=== PATIENT | female | born 1965 | race African-American/Black ===

== ENCOUNTER 2017-04-12 21:11 | Emergency (ER) | payer OTHER ==
[~2017-04-12] VITALS: Ht 167.6 cm; Wt 85.7 kg
[~2017-04-12 21:11] MED LIST: BENA10TA2 PO; LAMO100T2 PO
[2017-04-12 23:25] VITALS: BP 155/78
--- NOTE | 2017-04-12 23:39 | NUR ---
LITO GOODMAN AT BEDSIDE FOR EVAL.
[2017-04-12] MEDS ORDERED: predniSONE 20 MG TABLET ONE (23:48)
[2017-04-12] MEDS ORDERED: FAMOTIDINE (20 MG) 20 MG TABLET ONE (23:48)
[2017-04-13] MEDS ORDERED: predniSONE 20 MG TABLET PO ONE
[2017-04-13] MEDS ORDERED: FAMOTIDINE (20 MG) 20 MG TABLET PO ONE
== END 2017-04-13 00:17 | disposition home or self-care (01) ==
LOC: ER 21:27
DX: T78.40XA Allergy, unspecified, initial encounter (principal); R21 Rash and other nonspecific skin eruption; I10 Essential (primary) hypertension; F17.200 Nicotine dependence, unspecified, uncomplicated; Z88.5 Allergy status to narcotic agent
CPT/HCPCS: 99283; A4606; J7512; Z7610

== ENCOUNTER 2018-11-05 18:03 | Emergency (ER) | payer OTHER ==
[~2018-11-05] VITALS: Ht 162.6 cm; Wt 92.5 kg
[~2018-11-05 18:03] MED LIST changes: -BENA10TA2 PO; +BENA10TA9 PO
[2018-11-05 18:33] VITALS: BP 148/91
== END 2018-11-05 19:03 | disposition home or self-care (01) ==
LOC: ER 18:05
DX: H92.02 Otalgia, left ear (principal); G40.909 Epilepsy, unspecified, not intractable, without status epilepticus; I10 Essential (primary) hypertension; F17.200 Nicotine dependence, unspecified, uncomplicated; Z88.5 Allergy status to narcotic agent
CPT/HCPCS: 99283; A4606

== ENCOUNTER 2020-02-02 01:20 | Inpatient (IN) | payer OTHER ==
[~2020-02-02] VITALS: Ht 162.6 cm; Wt 88.5 kg
[~2020-02-02 01:20] MED LIST changes: +BENA10TA74 PO; -BENA10TA9 PO
--- NOTE | 2020-02-02 01:30 | NUR ---
PT CAME TO THE ED C/O INTERMITTENT BILATERAL LOWER EXT EDEMA X4 DAYS. -REDNESS -TRAUMA - PAIN. PT AAOX4, RESPIRATIONS EVEN ADN UNLABORED ON RA W/ AND NOTED. PT CONNECTED TO THE MONITOR AND POX
--- NOTE | 2020-02-02 01:37 | NUR ---
PT ambualted to the restroom. Awaiting Pt to provide urine sample
--- NOTE | 2020-02-02 01:46 | NUR ---
URINE COLLECTED AND SENT TO LAB
--- NOTE | 2020-02-02 01:46 | NUR ---
BLOOD COLLECTED AND SENT TO LAB
[2020-02-02 01:49] LABS: BASOPHILS # (AUTO) 0.1 /CMM (0.0-0.2); EOSINOPHILS % (AUTO) 5.3 % (0.0-6.0); HEMATOCRIT 37 % (33-45); HEMOGLOBIN 12.4 g/dL (11.5-14.8); LYMPHOCYTES # (AUTO) 3.2 /CMM (0.8-4.8); LYMPHOCYTES % (AUTO) 41.1 % (20.0-44.0); MEAN CORPUSCULAR HGB CONC 33 g/dl (31.0-36.0); MEAN CORPUSCULAR VOLUME 96 fL (82-100); MONOCYTES # (AUTO) 0.3 /CMM (0.1-1.30); NEUTROPHILS # (AUTO) 3.8 /CMM (1.8-8.9); NEUTROPHILS % (AUTO) 48.6 % (43.0-81.0); PLATELET COUNT (AUTO) 407 /CMM (150-450); RED BLOOD CELL COUNT(AUTO) 3.89 MIL/uL (4.0-5.2); WHITE BLOOD COUNT (AUTO) 7.8 K/uL (4.3-11.0)
[2020-02-02 01:55] LABS: APPEARANCE,URINE Slightly Cloudy (CLEAR); BILIRUBIN,URINE SMALL (NEGATIVE); BLOOD, URINE Large Ery/uL (NEGATIVE); COLOR,URINE Yellow (YELLOW); KETONES,URINE Negative (NEGATIVE); LEUKOCYTE ESTERASE ,URINE Negative (NEGATIVE); NITRITE, URINE Negative (NEGATIVE); PROTEIN,URINE >=300 mg/dl (NEGATIVE); UGLUCOSE Negative (NEGATIVE); UROBILINOGEN,URINE 0.2 EU/dL (0.2)
[2020-02-02 01:59] LABS: CALCIUM, SERUM 8.3 mg/dL (8.5-10.1); CREATININE 1.5 mg/dL (0.6-1.3); POTASSIUM 3.8 mmol/L (3.5-5.1)
[2020-02-02 02:05] LABS: ALBUMIN 1.5 g/dL (3.4-5.0); BILIRUBIN,TOTAL 0.1 mg/dL (0.2-1.0); TOTAL PROTEIN, SERUM 6.6 g/dL (6.4-8.2)
[2020-02-02 02:19] LABS: WBC,URINE 0-2 /HPF (0-3)
[2020-02-02 02:20] LABS: BACTERIA,URINE Few /HPF (None Seen); MUCUS,URINE Few /LPF (None Seen); SQUAMOUS EPITHELIAL CELL,UR Moderate /HPF (None Seen)
[2020-02-02] MEDS ORDERED: ASPIRIN 325 MG TABLET ONE (02:27)
--- NOTE | 2020-02-02 02:29 | NUR ---
Artemio salazar in [facility] - 02/02/20 at 0326 by ERICK PAULA (DAUGHTER) CONTACT INFORMATION: [phone]
[2020-02-02] MEDS ORDERED: ASPIRIN 325 MG TABLET PO ONE (02:30)
[2020-02-02] MEDS ORDERED: TOPI200T PO (02:33)
[2020-02-02] MEDS ORDERED: LAMO200T2 PO (02:33)
[2020-02-02] MEDS ORDERED: BENA20TA9 PO (02:34)
--- NOTE | 2020-02-02 03:42 | NUR ---
PAGED EPIC AGAIN!
--- NOTE | 2020-02-02 04:25 | NUR ---
REPORT GIVEN TO MIKE CRUZ
[2020-02-02] MEDS ORDERED: MAG HYDROX/AL HYDROX/SIMETH 30 ML UDC PO PRN (04:30)
[2020-02-02] MEDS ORDERED: MAGNESIUM HYDROXIDE 30 ML UDC PO PRN (04:30)
[2020-02-02] MEDS ORDERED: ONDANSETRON HCL/PF 4 MG/2 ML VIAL IVP PRN (04:30)
[2020-02-02] MEDS ORDERED: Z GUARD REMEDY 2 OZ OINT TP PRN (04:30)
[2020-02-02] MEDS ORDERED: ACETAMINOPHEN 325 MG TABLET PO PRN (04:30)
[2020-02-02] MEDS ORDERED: HYDROCODONE/APAP 5/325MG 1 EACH TABLET PO PRN (04:30)
[2020-02-02 04:50] VITALS: BP 137/78
--- NOTE | 2020-02-02 04:50 | NUR ---
telegraph mechanictax attorney note received patient via gurney. patient ambulated to bed with steady gait. a/ox4. tolerating room air. respirations are even and unlabored. no s/s sob noted. no c/o pain at this time. external tele monitor reads sinus rhythm hr 75. in no apparent distress. iv access in rac#20 patent and saline locked. initial physical assessment completed at this time. skin assessment completed at this time. skin intact. compressor operator adjuster obtained vital signs and completed belongings list. ciggs and liter taken and placed in drawer at nurses station. bed is low and locked, hob elevated in semi fowlers, side rails up x2, call light within reach. will continue to monitor.
--- NOTE | 2020-02-02 05:47 | NUR ---
PT TRANSFERRED TO ROOM IN STABLE CONDITION VIA ACLS PROTOCOL
--- NOTE | 2020-02-02 06:52 | NUR ---
teletypewriter operator closing note patient in bed. a/ox4. tolerating room air. respirations are even and unlabored. no s/s sob noted. no c/o pain. external tele monitor reads sinus rhythm. no distress. iv access maintained in rac#20 patent and saline locked. bed remains low and locked, hob elevated in semi fowlers, side rails up x2, call light within reach. will endorse to next shift
--- NOTE | 2020-02-02 07:53 | NUR ---
RN Initial Notes Patient is pleasant A/O x 4. Patient has no pain and with no signs of distress. IV RAC is intact with no signs of redness no swelling and no pain. Bed is in low setting with side rails up and call light within reach. Has a morning appetite. Continue to monitor.
[2020-02-02 08:00] VITALS: BP 155/93
[2020-02-02] MEDS: LamoTRIgine 100 MG TABLET PO SCH (08:56)
[2020-02-02] MEDS ORDERED: ENOXAPARIN SODIUM 30 MG/0.3 ML DISP.SYRIN SQ SCH (09:00)
[2020-02-02] MEDS ORDERED: FUROSEMIDE 40 MG/4 ML VIAL IV SCH (09:00)
[2020-02-02] MEDS: ASPIRIN 325 MG TABLET PO SCH (09:01)
[2020-02-02] MEDS: TOPIRAMATE 100 MG TABLET PO SCH ×2 (09:02→16:26)
[2020-02-02] MEDS: BENAZEPRIL HCL 10 MG TABLET PO SCH (09:04)
[2020-02-02] MEDS: METOPROLOL TARTRATE 50 MG TABLET PO SCH ×2 (09:05→21:03)
[2020-02-02] MEDS: ATORVASTATIN 10 MG TABLET PO SCH (09:05)
[2020-02-02] MEDS: ENOXAPARIN SODIUM 40 MG/0.4 ML DISP.SYRIN SQ SCH (09:06)
[2020-02-02] MEDS ORDERED: METOPROLOL TARTRATE INJ 5 MG/5 ML AMPUL IVP PRN (09:30)
[2020-02-02] MEDS ORDERED: NITROGLYCERIN 0.4 MG/TAB BOTTLE SL ONE (09:30)
--- NOTE | 2020-02-02 09:50 | NUR ---
PEDIATRIC DENTAL HYGIENIST NOTES PT SEEN BY DR. ANTONIO, PLAN OF CARE DISCUSSED WITH PT, VERBALIZED UNDERSTANDING, CLARIFIED LOVENOX DOSE WITH MD, MD ORDERED LOVENOX 40MG, NOTED AND CARRIED OUT, PT FOR CT ANGIO OF THE HEART, CONSENTS SIGNED.
[2020-02-02] MEDS ORDERED: IOHEXOL-350 100 ML VIAL IV ONE (09:56)
[2020-02-02] MEDS ORDERED: IV NS 0.9% 250 ML IV ONE (09:56)
[2020-02-02] MEDS ORDERED: NITROGLYCERIN 0.4 MG/TAB BOTTLE ONE ×2 (10:10→11:01)
[2020-02-02] MEDS ORDERED: METOPROLOL TARTRATE INJ 5 MG/5 ML AMPUL ONE ×2 (10:10→11:02)
--- NOTE | 2020-02-02 11:28 | NUR ---
from the floor for CTA heart via wheelchair, denies CP sob, Metoprolol 5 mg IVP given x1 and NTG 0.04 mg SL given ; tolerated procedure, VSS; tolerated procedure; denies CP or SOB, back to floor via wheelchair; report given to Lynne MCKEON
[2020-02-02 12:00] VITALS: BP 139/81
--- NOTE | 2020-02-02 12:57 | NUR ---
ANILINE PRESS WORKER Notes Patient is A/O x 4 scheduled medications were given. No signs of distress and no SOB. ECHO was performed. Vitals are within normal range. Bed is in low setting and side rails up for safety. Call light is within reach. Continue to monitor.
[2020-02-02 16:00] VITALS: BP 130/72
--- NOTE | 2020-02-02 18:00 | NUR ---
BRIDGE ENGINEER Closing Notes Patient is A/O x 4. In room air with no SOB and no signs of distress. Vitals are WNL and no pain. Scheduled medication were given. IV RAC is patent. Bed is in low settings with said rails up for safety hob is semi fowlers. Call light is within reach. Will endorse to next shift.
--- NOTE | 2020-02-02 19:30 | NUR ---
telemarketing representative opening note received patient in bed. a/ox4. tolerating room air. respirations are even and unlabored. no s/s sob noted. no c/o pain at this time. external tele monitor reads sinus rhythm hr 66. in no apparent distress. iv access in rac#20 patent and saline locked. bed is low and locked, hob elevated in semi fowlers, side rails up x2, call light within reach. will continue to monitor.
[2020-02-02 20:00] VITALS: BP 131/76
[2020-02-03] VITALS: BP 123/71
[2020-02-03 04:00] VITALS: BP 115/71
[2020-02-03 06:23] LABS: BASOPHILS % (AUTO) 0.7 % (0.0-2.0); EOSINOPHILS % (AUTO) 6.2 % (0.0-6.0); HEMATOCRIT 31 % (33-45); HEMOGLOBIN 10.3 g/dL (11.5-14.8); LYMPHOCYTES % (AUTO) 48.8 % (20.0-44.0); MEAN CORPUSCULAR HGB CONC 33 g/dl (31.0-36.0); MEAN CORPUSCULAR VOLUME 96 fL (82-100); MONOCYTES # (AUTO) 0.4 /CMM (0.1-1.30); MONOCYTES % (AUTO) 5.8 % (2.0-12.0); NEUTROPHILS # (AUTO) 2.3 /CMM (1.8-8.9); NEUTROPHILS % (AUTO) 38.5 % (43.0-81.0); PLATELET COUNT (AUTO) 323 /CMM (150-450); RED BLOOD CELL COUNT(AUTO) 3.25 MIL/uL (4.0-5.2); WHITE BLOOD COUNT (AUTO) 6.1 K/uL (4.3-11.0)
--- NOTE | 2020-02-03 06:38 | NUR ---
supervisor telephone clerks closing note patient in bed. a/ox4. remains tolerating room air. respirations are even and unlabored. no sob noted.no pain. external tele monitor reads sinus rhythm. no distress. iv access maintained in rac#20 patent and saline locked. bed remains low and locked, hob elevated in semi fowlers, side rails up x2, call light within reach. will endorse to next shift
[2020-02-03 06:46] LABS: CALCIUM, SERUM 7.6 mg/dL (8.5-10.1); CREATININE 1.3 mg/dL (0.6-1.3); MAGNESIUM 1.7 mg/dL (1.8-2.4); PHOSPHORUS 5.2 mg/dL (2.5-4.9); POTASSIUM 3.9 mmol/L (3.5-5.1)
--- NOTE | 2020-02-03 07:33 | NUR ---
viscose department worker Opening Notes Patient is A/0 x 4 remain in bed with no signs of shortness of breath and no distress in room air. No c/o of pain. IV RAC #20 gauge in patent saline locked. Bed is in low settings and side rails up for safety. Call light is within reach. Continue to monitor.
[2020-02-03 08:00] VITALS: BP 154/84
[2020-02-03] MEDS: ENOXAPARIN SODIUM 40 MG/0.4 ML DISP.SYRIN SQ SCH (08:43)
[2020-02-03] MEDS: TOPIRAMATE 100 MG TABLET PO SCH (08:44)
[2020-02-03] MEDS: LamoTRIgine 100 MG TABLET PO SCH (08:44)
[2020-02-03] MEDS: ASPIRIN 325 MG TABLET PO SCH (08:44)
[2020-02-03] MEDS: BENAZEPRIL HCL 10 MG TABLET PO SCH (08:45)
[2020-02-03] MEDS: METOPROLOL TARTRATE 50 MG TABLET PO SCH (08:45)
[2020-02-03] MEDS: ATORVASTATIN 10 MG TABLET PO SCH (08:45)
[2020-02-03 12:00] VITALS: BP 143/83
[2020-02-03] MEDS: Magnesium 1GM/D5W 100ML PREMIX 100 ML IV SCH ×2 (12:03→13:07)
--- NOTE | 2020-02-03 12:24 | NUR ---
ICER AIR CONDITIONING Notes Patient is A/O x 4 remains in bed with no signs of distress and no shortness of breath. Scheduled medications were given and tolerated food meals good.
--- NOTE | 2020-02-03 16:04 | NUR ---
aba therapist Notes Patient in bed awake alert and oriented able to ambulate to the bathroom in steady gait no complain of pain. Respirations are normal. Patient seen by Dr. Hinton discharge order given. Discharge medications and discharge instructions given to patients verbalize understanding. Patient to follow up with Dr. Kennedy. Belongings accounted for new prescription given to patient assisted patient o hospital lobby via wheelchair picked up by daughter. Left via private car in stable condition.
[2020-02-04 08:11] LABS: *SPE A/G RATIO 0.5 (0.7-1.7); *SPE ALBUMIN 1.7 g/dL (2.9-4.4); *SPE ALPHA-1-GLOBULIN 0.2 g/dL (0.0-0.4); *SPE ALPHA-2-GLOBULIN 1.1 g/dL (0.4-1.0); *SPE BETA GLOBULIN 0.4 g/dL (0.7-1.3); *SPE GLOBULIN, TOTAL 3.2 g/dL (2.2-3.9); *SPEGAMMA GLOBULIN 1.5 g/dL (0.4-1.8)
== END 2020-02-03 16:39 | disposition home or self-care (01) | DRG 280 ==
LOC: ER 01:22 → TELE 04:14 → MED 02-03 11:29
PROVIDERS: ADMIT Legal Medicine; ATTEND Legal Medicine
DX: I21.4 Non-ST elevation (NSTEMI) myocardial infarction (principal); I50.33 Acute on chronic diastolic (congestive) heart failure; N17.0 Acute kidney failure with tubular necrosis; I13.0 Hypertensive heart and chronic kidney disease with heart failure and stage 1 through stage 4 chronic kidney disease, or unspecified chronic kidney disease; G40.909 Epilepsy, unspecified, not intractable, without status epilepticus; N18.3 Chronic kidney disease, stage 3 (moderate); E78.5 Hyperlipidemia, unspecified; I25.10 Atherosclerotic heart disease of native coronary artery without angina pectoris; J44.9 Chronic obstructive pulmonary disease, unspecified; F17.200 Nicotine dependence, unspecified, uncomplicated
CPT/HCPCS: 36415; 71045-TC; 75574; 80048-TC; 80061-TC; 80076-TC; 81000-TC; 83735-TC; 83880; 84100-TC; 84155; 84165; 84484-TC; 85025-TC; 87081-TC; 93307-TC; G0378; J1650; J3475; J3490; J7050; Q9967

== ENCOUNTER 2020-02-13 17:39 | Inpatient (IN) | payer OTHER ==
[~2020-02-13] VITALS: Ht 162.6 cm; Wt 86.2 kg
[~2020-02-13 17:39] MED LIST changes: +BENA20TA9 PO; +LAMO200T2 PO; +TOPI200T PO
--- NOTE | 2020-02-13 18:05 | NUR ---
PATIENT CAME IN TO THE ER C/O WEAKNESS SINCE SHE WAS DISCHARGED ABOUT 5 DAYS AGO,ALSO C/O CHEST DISCOMFORT,"LIKE SOMEONE IS SITTING ON MY CHEST". ON ROOM AIR, BREATHING EVENLY AND UNLABORED. CONNECTED TO THE MONITOR AND PULSE OX. KEPT COMFORTABLE, WILL CONTINUE TO MONITOR ACCORDINGLY.
[2020-02-13] MEDS ORDERED: ASPIRIN 81 MG TAB.CHEW ONE (18:27)
[2020-02-13] MEDS ORDERED: ASPIRIN 81 MG TAB.CHEW PO ONE (18:30)
[2020-02-13 18:41] LABS: BASOPHILS # (AUTO) 0.1 /CMM (0.0-0.2); BASOPHILS % (AUTO) 1.9 % (0.0-2.0); EOSINOPHILS % (AUTO) 5.9 % (0.0-6.0); HEMATOCRIT 38 % (33-45); HEMOGLOBIN 12.3 g/dL (11.5-14.8); LYMPHOCYTES # (AUTO) 2.8 /CMM (0.8-4.8); LYMPHOCYTES % (AUTO) 39.6 % (20.0-44.0); MEAN CORPUSCULAR HGB CONC 33 g/dl (31.0-36.0); MEAN CORPUSCULAR VOLUME 98 fL (82-100); MONOCYTES # (AUTO) 0.3 /CMM (0.1-1.30); MONOCYTES % (AUTO) 4.4 % (2.0-12.0); NEUTROPHILS # (AUTO) 3.4 /CMM (1.8-8.9); NEUTROPHILS % (AUTO) 48.2 % (43.0-81.0); PLATELET COUNT (AUTO) 395 /CMM (150-450); RED BLOOD CELL COUNT(AUTO) 3.86 MIL/uL (4.0-5.2); WHITE BLOOD COUNT (AUTO) 7.1 K/uL (4.3-11.0)
[2020-02-13 19:03] LABS: BILIRUBIN,TOTAL 0.1 mg/dL (0.2-1.0); CREATININE 1.3 mg/dL (0.6-1.3); POTASSIUM 3.9 mmol/L (3.5-5.1); TOTAL PROTEIN, SERUM 6.3 g/dL (6.4-8.2)
--- NOTE | 2020-02-13 19:13 | NUR ---
report given to Carlos MCKEON for hector.
[2020-02-13 19:18] LABS: CALCIUM, SERUM 8.2 mg/dL (8.5-10.1)
[2020-02-13 19:19] LABS: ALBUMIN 1.4 g/dL (3.4-5.0)
--- NOTE | 2020-02-13 19:28 | NUR ---
PATIENT AMBULATED TO THE RESTROOM WITH STEADY GAIT.
--- NOTE | 2020-02-13 19:36 | NUR ---
URINE COLLECTED AND SENT TO THE LAB.
[2020-02-13 20:04] LABS: APPEARANCE,URINE Clear (CLEAR); BILIRUBIN,URINE Negative (NEGATIVE); BLOOD, URINE Moderate Ery/uL (NEGATIVE); COLOR,URINE Yellow (YELLOW); KETONES,URINE Negative (NEGATIVE); LEUKOCYTE ESTERASE ,URINE Negative (NEGATIVE); NITRITE, URINE Negative (NEGATIVE); PROTEIN,URINE >=300 mg/dl (NEGATIVE); UGLUCOSE Negative (NEGATIVE); UROBILINOGEN,URINE 0.2 EU/dL (0.2)
[2020-02-13 20:12] LABS: BACTERIA,URINE Few /HPF (None Seen); SQUAMOUS EPITHELIAL CELL,UR Few /HPF (None Seen); WBC,URINE 0-2 /HPF (0-3)
--- NOTE | 2020-02-13 22:02 | NUR ---
REPORT GIVEN TO KENDRA MCKEON FOR ZACARIAS.
--- NOTE | 2020-02-13 22:15 | NUR ---
PRE OWNED SALES MANAGER OPENING NOTES [facility] A/O X4, AMBULATORY, SKIN INTACT, NO CHEST PAIN REPORTED BY THE PATIENT, BREATHING AT ROOM AIR, UNLABORED BREATHING, RAC #18G INTACT, SIDE RAILS UP. Addendum: 02/14/20 at 0227 by KENDRA TRISTAN RN VITAL SIGNS UPON ADMISSION BP- 156/87, HR- 56, RR 20, TEMP- 98.8, 02 SAT. 98%/
--- NOTE | 2020-02-13 22:21 | NUR ---
PATIENT TAKEN UP TO ADMITTING ROOM.
--- NOTE | 2020-02-13 22:29 | NUR ---
RT NOTES EKG PREFORMED IN ER. DUPLICATE EKG. RN NOTIFIED. CHARGE NURSE NOTIFIED.
[2020-02-13] MEDS ORDERED: NITROGLYCERIN 0.4 MG/TAB BOTTLE SL PRN (22:30)
[2020-02-13] MEDS ORDERED: MAGNESIUM HYDROXIDE 30 ML UDC PO PRN (22:30)
[2020-02-13] MEDS ORDERED: MAG HYDROX/AL HYDROX/SIMETH 30 ML UDC PO PRN (22:30)
[2020-02-13] MEDS ORDERED: ZOLPIDEM TARTRATE 5 MG TABLET PO PRN (22:30)
[2020-02-13] MEDS ORDERED: ACETAMINOPHEN 325 MG TABLET PO PRN (22:30)
[2020-02-13] MEDS ORDERED: HYDROCODONE/APAP 5/325MG TABLET PO PRN (22:30)
[2020-02-13] MEDS ORDERED: Z GUARD REMEDY 2 OZ OINT TP PRN (22:30)
[2020-02-13] MEDS ORDERED: MORPHINE SULFATE INJ 2 MG/ML DISP.SYRIN IV PRN (22:30)
[2020-02-13] MEDS ORDERED: ONDANSETRON HCL/PF 4 MG/2 ML VIAL IVP PRN (22:30)
[2020-02-13 22:50] VITALS: BP 156/87
[2020-02-13] MEDS ORDERED: FUROSEMIDE 40 MG/4 ML VIAL IV SCH (23:00)
--- NOTE | 2020-02-13 23:26 | NUR ---
EMAIL PRODUCTION CONSULTANT NOTES LASIX 40MG VIAL GIVEN. PATIENT'S BP- 156/86.
[2020-02-14] VITALS: BP 148/80
[2020-02-14 04:00] VITALS: BP 135/68
--- NOTE | 2020-02-14 06:29 | NUR ---
GROUP INSURANCE SPECIALIST CLOSING NOTES ENDORSED PATIENT TO MORNING STAFF NURSE AWAKE, A/O X4, AMBULATORY, SKIN INTACT, NO CHEST PAIN REPORTED BY THE PATIENT, BREATHING AT ROOM AIR, UNLABORED BREATHING, RAC #18G INTACT, SIDE RAILS UP FOR SAFETY.
[2020-02-14 06:44] LABS: BASOPHILS # (AUTO) 0.1 /CMM (0.0-0.2); BASOPHILS % (AUTO) 1.2 % (0.0-2.0); EOSINOPHILS % (AUTO) 5.6 % (0.0-6.0); HEMATOCRIT 35 % (33-45); HEMOGLOBIN 11.5 g/dL (11.5-14.8); LYMPHOCYTES # (AUTO) 2.7 /CMM (0.8-4.8); LYMPHOCYTES % (AUTO) 45.6 % (20.0-44.0); MEAN CORPUSCULAR HGB CONC 33 g/dl (31.0-36.0); MEAN CORPUSCULAR VOLUME 96 fL (82-100); MONOCYTES # (AUTO) 0.3 /CMM (0.1-1.30); MONOCYTES % (AUTO) 5.6 % (2.0-12.0); NEUTROPHILS # (AUTO) 2.5 /CMM (1.8-8.9); PLATELET COUNT (AUTO) 383 /CMM (150-450); RED BLOOD CELL COUNT(AUTO) 3.63 MIL/uL (4.0-5.2); WHITE BLOOD COUNT (AUTO) 5.9 K/uL (4.3-11.0)
[2020-02-14 06:52] LABS: THYROID STIMULATING HORMONE 23.682 uIU/mL (0.358-3.74)
--- NOTE | 2020-02-14 07:45 | NUR ---
ORIENTOR OPENING NOTE PATIENT IN BED RESTING COMFORTABLY. PATIENT IN NO ACUTE DISTRESS. NO SOB NOTED. PATIENT BREATHING IS EVEN AND UNLABORED. PATIENT ON CARDIAC MONITORING READING SINUS BRADYCARDIA HR 55. PATIENT STATES NO CHEST PAIN AT THIS TIME. PATIENT BED ALARM IS ON. PATIENT SAFETY PRECAUTIONS IN PLACE. PATIENT BED IS LOCKED AND IN LOWEST POSITION. CALL LIGHT WITHIN REACH. WILL CONTINUE TO MONITOR.
[2020-02-14] MEDS ORDERED: ENOXAPARIN SODIUM 40 MG/0.4 ML DISP.SYRIN SQ SCH (08:00)
[2020-02-14 08:11] LABS: CALCIUM, SERUM 8.1 mg/dL (8.5-10.1); CREATININE 1.2 mg/dL (0.6-1.3); MAGNESIUM 1.7 mg/dL (1.8-2.4); PHOSPHORUS 5.4 mg/dL (2.5-4.9); POTASSIUM 3.6 mmol/L (3.5-5.1)
[2020-02-14] MEDS: TOPIRAMATE 100 MG TABLET PO SCH ×2 (08:20→21:05)
[2020-02-14] MEDS: LamoTRIgine 100 MG TABLET PO SCH ×2 (08:20→21:05)
[2020-02-14 08:27] VITALS: BP 139/71
[2020-02-14] MEDS ORDERED: ASPIRIN EC 81 MG TABLET.DR PO SCH (09:00)
[2020-02-14] MEDS ORDERED: ATORVASTATIN 10 MG TABLET PO SCH (09:00)
[2020-02-14] MEDS ORDERED: BENAZEPRIL HCL 10 MG TABLET PO SCH (09:00)
[2020-02-14] MEDS ORDERED: ATENOLOL 50 MG TABLET PO SCH (09:00)
[2020-02-14] MEDS: Magnesium 1GM/D5W 100ML PREMIX 100 ML IV SCH ×2 (09:54→11:16)
[2020-02-14] MEDS ORDERED: LEVOTHYROXINE SODIUM 50 MCG TABLET PO SCH (10:00)
[2020-02-14 16:00] VITALS: BP 140/77
--- NOTE | 2020-02-14 18:53 | NUR ---
TECHNOLOGY LAB TEACHER CLOSING NOTE PATIENT IN BED RESTING COMFORTABLY. PATIENT IN NO ACUTE DISTRESS. NO SOB NOTED. PATIENT BREATHING IS EVEN AND UNLABORED. PATIENT ON CARDIAC MONITORING READING SINUS BRADYCARDIA HR 59. PATIENT STATES NO CHEST PAIN AT THIS TIME. PATIENT KEPT CLEAN, DRY AND COMFORTABLE THROUGHOUT SHIFT. PATIENT BED ALARM IS ON. PATIENT SAFETY PRECAUTIONS IN PLACE. PATIENT BED IS LOCKED AND IN LOWEST POSITION. CALL LIGHT WITHIN REACH. WILL ENDORSE CARE TO PM SHIFT FOR ZACARIAS.
--- NOTE | 2020-02-14 19:25 | NUR ---
TIRE RECAPPER NOTES RECEIVED ON BED A/O X4,CONVERSANT,DENIES CHEST PAIN AT THE MOMENT.SALINE LOCK RIGHT AC INTACT AND PATENT.CALL LIGHT IN REACH,NEEDS ANTICIPATED.AFIB CONTROLLED ON TELE MONITOR.
--- NOTE | 2020-02-14 19:50 | NUR ---
SYSTEMS TEST TECHNICIAN NOTES RECEIVED REPORT FROM MIKE VINES. PATIENT IN BED ALERT AND ORIENTED X 4, ON ROOM AIR WITH NO SIGNS OF SOB AT THIS TIME WITH EVEN NON-LABORED BREATHING. PATIENT SKIN WARM AND DRY TO TOUCH. RIGHT AC 18 INTACT AND PATENT. SAFETY PRECAUTIONS IMPLEMENTED WITH BED IN THE LOWEST POSITION, BED LOCKED, BILATERAL SIDE RAILS UP, AND CALL LIGHT WITHIN EASY REACH OF THE PATIENT.
[2020-02-14 20:28] VITALS: BP 147/84
--- NOTE | 2020-02-14 20:30 | NUR ---
WASHING MACHINE LOADER NOTES COVID SWAB DONE AND SENT TO LAB. PLACED PATIENT ON RULE OUT COVID PRECAUTIONS, WILL CONTINUE TO MONITOR PATIENT.
--- NOTE | 2020-02-14 23:47 | NUR ---
LAMP SHADES SUPERVISOR NOTES PATIENT IS BEING TRANSFERRED FOR HIGHER LEVEL OF CARE. GAVE REPORT AND SPOKE WITH MIKE STOKES FROM [facility]. AWAITING FOR TRANSPORTATION TO ARRIVE. WILL CONTINUE TO MONITOR PATIENT.
[2020-02-15] VITALS: BP 128/68
--- NOTE | 2020-02-15 02:00 | NUR ---
PHOTOGRAPHIC RESTORER NOTES PATIENT LEFT WITH TRANSPORTATION UNIT [facility]IA [facility], VIA ACLS PROTOCOL, ALYSSIA RN AT SIDE. EDUCATED THE PATIENT ON RISKS AND BENEFITS. ID ARM BAND REMOVED. IV ACCESS IN PLACE DUE TO PATIENT TRANSFERRING TO [facility]. PATIENT LEFT WITH BELONGINGS. VITAL SIGNS STABLE, NO SOB NOTED.
== END 2020-02-15 02:00 | disposition short-term general hospital (02) | DRG 280 ==
LOC: ER 17:45 → TELE 21:50
PROVIDERS: ATTEND Legal Medicine
DX: I21.4 Non-ST elevation (NSTEMI) myocardial infarction (principal); I50.33 Acute on chronic diastolic (congestive) heart failure; J98.11 Atelectasis; I11.0 Hypertensive heart disease with heart failure; G40.909 Epilepsy, unspecified, not intractable, without status epilepticus; Z85.3 Personal history of malignant neoplasm of breast; Z88.5 Allergy status to narcotic agent; Z79.899 Other long term (current) drug therapy; E78.5 Hyperlipidemia, unspecified; E66.9 Obesity, unspecified; E03.9 Hypothyroidism, unspecified; F17.200 Nicotine dependence, unspecified, uncomplicated; I25.2 Old myocardial infarction; I70.0 Atherosclerosis of aorta; J44.9 Chronic obstructive pulmonary disease, unspecified
CPT/HCPCS: 36415; 71045-TC; 80048-TC; 80061-TC; 80076-TC; 81000-TC; 82728-TC; 83540-TC; 83735-TC; 83880; 84100-TC; 84439-TC; 84443-TC; 84484-TC; 84703-TC; 85025-TC; 87081-TC; 93970-TC; G0378; J1650; J1940; J3475; U0003-CS

== ENCOUNTER 2020-03-14 20:21 | Inpatient (IN) | payer OTHER ==
[~2020-03-14] VITALS: Ht 162.6 cm; Wt 89.8 kg
--- NOTE | 2020-03-14 20:30 | NUR ---
EKG AT BEDSIDE
--- NOTE | 2020-03-14 21:30 | NUR ---
BIBS FOR C/O S/E OF METOPROLOL, LASIX AND LIPITOR. (BLE EDEMA, SOB, WT GAIN DIZZINESS AND RAPID POUNDING HEART RATE). PT STATED SHE STARTED THESE MEDICATIONS MORE AND LESS TWO WEEKS AGO. DENIED CHEST PAIN. PT AMBULATORY TO BED 16. PT WAS PLACED ON A MONITOR,. VSS. WILL CONT TO MONITOR
--- NOTE | 2020-03-14 21:35 | NUR ---
PT CAME TO THE ER C/O "SIDE FFECTS" OF METOPROLOL AND LASIX COMBINED. BLE EDEMA NOTED. PT STATES AFTER SHE TOOK THE METOPROLOL SHE WAS HAVING BLE, SOB, AND RAPID HEART RATE. PT AAOX4, AMBULATORY RESPIRATIONS EVEN AND UNLABORED ON RA W/ NAD NOTED. PT CONNECTED TO THE METER CHANGES RECORDS CLERK AND POX
[2020-03-14 22:00] LABS: BASOPHILS # (AUTO) 0.1 /CMM (0.0-0.2); BASOPHILS % (AUTO) 1.1 % (0.0-2.0); EOSINOPHILS % (AUTO) 4.2 % (0.0-6.0); HEMATOCRIT 38 % (33-45); HEMOGLOBIN 12.7 g/dL (11.5-14.8); LYMPHOCYTES # (AUTO) 3.1 /CMM (0.8-4.8); LYMPHOCYTES % (AUTO) 42.7 % (20.0-44.0); MEAN CORPUSCULAR HGB CONC 33 g/dl (31.0-36.0); MEAN CORPUSCULAR VOLUME 98 fL (82-100); MONOCYTES # (AUTO) 0.4 /CMM (0.1-1.30); MONOCYTES % (AUTO) 5.7 % (2.0-12.0); NEUTROPHILS # (AUTO) 3.3 /CMM (1.8-8.9); NEUTROPHILS % (AUTO) 46.3 % (43.0-81.0); PLATELET COUNT (AUTO) 405 /CMM (150-450); RED BLOOD CELL COUNT(AUTO) 3.93 MIL/uL (4.0-5.2); WHITE BLOOD COUNT (AUTO) 7.2 K/uL (4.3-11.0)
--- NOTE | 2020-03-14 22:07 | NUR ---
X.RAY AT THE BED SIDE
[2020-03-14 22:20] LABS: CALCIUM, SERUM 7.7 mg/dL (8.5-10.1); CREATININE 1.2 mg/dL (0.6-1.3); POTASSIUM 3.7 mmol/L (3.5-5.1)
--- NOTE | 2020-03-14 22:45 | NUR ---
JAYME, JUAN AT [facility]
--- NOTE | 2020-03-14 22:52 | NUR ---
COVID SWAB SENT TO LAB
[2020-03-14] MEDS ORDERED: TOPI200T PO (22:54)
[2020-03-14] MEDS ORDERED: ATOR40TA PO (22:55)
[2020-03-14] MEDS ORDERED: ASPI-605 PO (22:56)
[2020-03-14] MEDS ORDERED: BENA40TA67 PO (22:57)
[2020-03-14] MEDS ORDERED: METO25TA6 PO (22:57)
[2020-03-14] MEDS ORDERED: LAMO200T10 PO (22:57)
[2020-03-14] MEDS ORDERED: FURO-144 PO (22:58)
[2020-03-14] MEDS ORDERED: ASPIRIN 325 MG TABLET ONE (22:59)
[2020-03-14] MEDS ORDERED: FUROSEMIDE 40 MG/4 ML VIAL ONE (22:59)
[2020-03-14] MEDS ORDERED: FUROSEMIDE 40 MG/4 ML VIAL IV ONE (23:00)
[2020-03-14] MEDS ORDERED: ASPIRIN 325 MG TABLET PO ONE (23:00)
--- NOTE | 2020-03-15 00:42 | NUR ---
PT TAKEN TO CT
--- NOTE | 2020-03-15 00:49 | NUR ---
PT BACK FROM CT
[2020-03-15 01:00] VITALS: BP 159/79
--- NOTE | 2020-03-15 01:06 | NUR ---
TUCKPOINTER CLEANER CAULKER ADMITTING NOTES PATIENT ARRIVED TO UNIT ACCOMPANIED BY 2 ER STAFF; PATIENT A/OX4, AMBULATORY; PATIENT TOLERATING ROOM AIR WELL; NO SOB NOTED; MED HX OBTAINED; PER PATIENT, SHE FELL 2 WEEKS AGO D/T DIZZINESS, SHE BELIEVES IT MAY BE A SIDE EFFECT FROM METROPOLOL THAT SHE STARTED; TELE MONITOR ATTACHED, READS NSR 80S BPM; L AC #20 INTACT AND PATENT, FLUSHING WELL; NO S/S OF REDNESS OR INFILTRATION NOTED; BELONGINGS CHECKED; PATIENT BROUGHT ALL MEDICATIONS WITH HER AND AGREED FOR US TO TAKE MEDICATION TO PHARMACY; PATIENT ORIENTED TO UNIT; SAFETY PRECAUTIONS IMPLEMENTED; BED LOCKED IN LOW POSITION; SIDE RAILSX2; CALL LIGHT WITHIN EASY REACH; WILL CONT TO MONITOR BETHANY STERN DNP AT BEDSIDE;
--- NOTE | 2020-03-15 01:11 | NUR ---
PT TRANSFERRED TO ROOM VIA ACLS PROTOCOL
[2020-03-15] MEDS ORDERED: METOPROLOL TARTRATE 25 MG TABLET PO SCH (01:30)
[2020-03-15] MEDS ORDERED: Z GUARD REMEDY 2 OZ OINT TP PRN (02:00)
[2020-03-15] MEDS ORDERED: MAGNESIUM HYDROXIDE 30 ML UDC PO PRN (02:00)
[2020-03-15] MEDS ORDERED: ZOLPIDEM TARTRATE 5 MG TABLET PO PRN (02:00)
[2020-03-15] MEDS ORDERED: ONDANSETRON HCL/PF 4 MG/2 ML VIAL IVP PRN (02:00)
[2020-03-15] MEDS ORDERED: ACETAMINOPHEN 325 MG TABLET PO PRN (02:00)
[2020-03-15] MEDS: TOPIRAMATE 100 MG TABLET PO SCH ×3 (02:23→20:30)
[2020-03-15] MEDS: LamoTRIgine 100 MG TABLET PO SCH ×3 (02:23→20:30)
[2020-03-15 04:00] VITALS: BP 128/62
[2020-03-15 04:31] LABS: BASOPHILS # (AUTO) 0.1 /CMM (0.0-0.2); BASOPHILS % (AUTO) 0.8 % (0.0-2.0); EOSINOPHILS % (AUTO) 4.3 % (0.0-6.0); HEMATOCRIT 37 % (33-45); HEMOGLOBIN 12.1 g/dL (11.5-14.8); LYMPHOCYTES % (AUTO) 42.2 % (20.0-44.0); MEAN CORPUSCULAR HGB CONC 33 g/dl (31.0-36.0); MEAN CORPUSCULAR VOLUME 97 fL (82-100); MONOCYTES # (AUTO) 0.4 /CMM (0.1-1.30); MONOCYTES % (AUTO) 6.1 % (2.0-12.0); NEUTROPHILS # (AUTO) 3.3 /CMM (1.8-8.9); NEUTROPHILS % (AUTO) 46.6 % (43.0-81.0); PLATELET COUNT (AUTO) 367 /CMM (150-450); RED BLOOD CELL COUNT(AUTO) 3.76 MIL/uL (4.0-5.2); WHITE BLOOD COUNT (AUTO) 7.2 K/uL (4.3-11.0)
[2020-03-15 04:48] LABS: CREATININE 1.2 mg/dL (0.6-1.3); MAGNESIUM 1.8 mg/dL (1.8-2.4); POTASSIUM 3.4 mmol/L (3.5-5.1)
--- NOTE | 2020-03-15 06:52 | NUR ---
CONCESSION CASHIER CLOSING NOTES PATIENT RESTING IN BED COMFORTABLY; A/OX4; BREATHING EVEN AND UNLABORED; TOLERATING ROOM AIR WELL; NO SOB NOTED; TELE MONITOR READS NSR C OCC. PVCS 67BPM; L AC #20 SL INTACT AND PATENT; FLUSHING WELL; NO S/S OF REDNESS OR INFILTRATION NOTED; PATIENT ABLE TO MAKE NEEDS KNOWN; ALL NEEDS RENDERED; SAFETY PRECAUTIONS IMPLEMENTED; BED LOCKED IN LOW POSITION; SIDE RAILSX2; CALL LIGHT WITHIN REACH; WILL ENDORSE ZACARIAS TO ONCOMING SHIFT
--- NOTE | 2020-03-15 07:20 | NUR ---
RN OPENING NOTES RECEIVED PATIENT I NBED RESTING. A/OX4. NOT IN ANY FORM OF DISTRESS. NO SOB. DENIED PAIN OR DISCOMFORT AT THIS TIME. IV ACCESS INTACT AND PATENT. SAFETY MEASURES IN PLACE. BED IN LOW/LOCKED POSITION, SIDERAILS UP X2, CALL LIGHT IN REACH. WILL CONT TO MONIOTR ACCORDINGLY
[2020-03-15 08:00] VITALS: BP 134/73
[2020-03-15] MEDS: BENAZEPRIL HCL 20 MG TABLET PO SCH (08:57)
[2020-03-15] MEDS: FUROSEMIDE 40 MG TABLET PO SCH (08:57)
[2020-03-15] MEDS: ASPIRIN EC 81 MG TABLET.DR PO SCH (08:58)
[2020-03-15] MEDS ORDERED: BENAZEPRIL HCL 10 MG TABLET PO SCH (09:00)
[2020-03-15] MEDS ORDERED: LamoTRIgine 100 MG TABLET PO SCH (09:00)
[2020-03-15] MEDS ORDERED: BENAZEPRIL HCL 20 MG TABLET PO SCH (09:00)
[2020-03-15 12:00] VITALS: BP 137/71
[2020-03-15] MEDS ORDERED: POTASSIUM CHLORIDE 20 MEQ TAB.PRT.SR PO ONE ×2 (12:30→12:42)
--- NOTE | 2020-03-15 15:45 | NUR ---
urine collected. called lab, spoke to Cholo for picked up specimen
[2020-03-15 16:00] VITALS: BP 125/73
[2020-03-15] MEDS ORDERED: ATORVASTATIN 40 MG TABLET PO SCH (18:00)
[2020-03-15 18:25] LABS: APPEARANCE,URINE CLEAR (CLEAR); BILIRUBIN,URINE NEGATIVE (NEGATIVE); BLOOD, URINE MODERATE Ery/uL (NEGATIVE); COLOR,URINE YELLOW (YELLOW); KETONES,URINE NEGATIVE (NEGATIVE); LEUKOCYTE ESTERASE ,URINE NEGATIVE (NEGATIVE); NITRITE, URINE NEGATIVE (NEGATIVE); PH,URINE 7.5 (5.0-8.0); PROTEIN,URINE >=300 mg/dl (NEGATIVE); UGLUCOSE NEGATIVE (NEGATIVE); UROBILINOGEN,URINE 0.2 EU/dL (0.2)
[2020-03-15 18:33] LABS: BACTERIA,URINE Few /HPF (None Seen); RBC,URINE 0-2 /HPF (0-2); SQUAMOUS EPITHELIAL CELL,UR Few /HPF (None Seen); WBC,URINE 0-2 /HPF (0-3)
[2020-03-15] MEDS: ATORVASTATIN 40 MG TABLET PO SCH (18:33)
--- NOTE | 2020-03-15 19:23 | NUR ---
RN CLOSING NOTES PATIENT IN STABLE CONDITION. ALL NEEDS ATTENDED AND PROVIDED. ALL DUE MEDS GIVEN ORDERED. ASSISTED WITH ADLS. KEPT PATIENT SAFE AND COMFORTABLE. BED IN LOW/LOCKED POSITION. SIDERAILS UPX2, CALL LIGHT IN REACH. ENDORSED TO NIGHT RN FOR ZACARIAS.
--- NOTE | 2020-03-15 19:35 | NUR ---
NURSING HOME ASSISTANT OPEN NOTES PATIENT IS LAYING IN BED. A/O X4. NO SOB/ ACUTE RESPIRATORY DISTRESS NOTED. APPEARS COMFORTABLE/ NO COMPLAINTS OF PAIN AT THE MOMENT. BED IS IN LOWEST LOCKED POSITION WITH SIDE RAILS UP X2, SEMI FOWLERS. CALL LIGHT IS WITHIN REACH. WILL CONTINUE TO MONITOR.
[2020-03-15 20:00] VITALS: BP 139/75
[2020-03-16] VITALS: BP 120/68
[2020-03-16 04:00] VITALS: BP 128/65
--- NOTE | 2020-03-16 06:23 | NUR ---
RETAIL ACCOUNT MANAGER CLOSE NOTES PATIENT IS LAYING IN BED. A/O X4. ON RA, NO SOB/ ACUTE RESPIRATORY DISTRESS NOTED. IV IN L AC #20G IS PATENT AND INTACT. APPEARS COMFORTABLE/ NO COMPLAINTS OF PAIN AT THE MOMENT. PATIENT IS AMBULATORY. ALL DUE MEDICATIONS GIVEN. BED IS IN LOWEST LOCKED POSITION WITH SIDE RAILS UP X2, SEMI FOWLERS. CALL LIGHT IS WITHIN REACH. WILL ENDORSE TO AM NURSE.
[2020-03-16 07:29] LABS: CALCIUM, SERUM 8.1 mg/dL (8.5-10.1); CREATININE 1.1 mg/dL (0.6-1.3); MAGNESIUM 1.8 mg/dL (1.8-2.4); POTASSIUM 3.8 mmol/L (3.5-5.1)
--- NOTE | 2020-03-16 07:30 | NUR ---
RN OPENING NOTES RECEIVED PATIENT IN BED RESTING. A/OX4. NOT IN ANY FORM OF DISTRESS. NO SOB. DENIED PAIN OR DISCOMFORT AT THIS TIME. IV ACCESS INTACT AND PATENT. SAFETY MEASURES IN PLACE. BED IN LOW/LOCKED POSITION, SIDERAILS UP X2, CALL LIGHT IN REACH. WILL CONT TO MONIOTR ACCORDINGLY
[2020-03-16 07:43] LABS: BASOPHILS % (AUTO) 0.7 % (0.0-2.0); EOSINOPHILS % (AUTO) 4.8 % (0.0-6.0); HEMATOCRIT 33 % (33-45); HEMOGLOBIN 10.9 g/dL (11.5-14.8); LYMPHOCYTES # (AUTO) 2.7 /CMM (0.8-4.8); LYMPHOCYTES % (AUTO) 44.5 % (20.0-44.0); MEAN CORPUSCULAR HGB CONC 33 g/dl (31.0-36.0); MEAN CORPUSCULAR VOLUME 98 fL (82-100); MONOCYTES # (AUTO) 0.3 /CMM (0.1-1.30); MONOCYTES % (AUTO) 5.2 % (2.0-12.0); NEUTROPHILS # (AUTO) 2.7 /CMM (1.8-8.9); NEUTROPHILS % (AUTO) 44.8 % (43.0-81.0); PLATELET COUNT (AUTO) 354 /CMM (150-450); RED BLOOD CELL COUNT(AUTO) 3.39 MIL/uL (4.0-5.2)
[2020-03-16 08:00] VITALS: BP 137/82
[2020-03-16] MEDS: ASPIRIN EC 81 MG TABLET.DR PO SCH (08:23)
[2020-03-16] MEDS: FUROSEMIDE 40 MG TABLET PO SCH (08:24)
[2020-03-16] MEDS: BENAZEPRIL HCL 20 MG TABLET PO SCH (08:24)
[2020-03-16] MEDS: LamoTRIgine 100 MG TABLET PO SCH (08:25)
[2020-03-16] MEDS: TOPIRAMATE 100 MG TABLET PO SCH (08:25)
[2020-03-16 16:00] VITALS: BP 135/86
[2020-03-16] MEDS ORDERED: BENA40TA67 PO (16:49)
[2020-03-16] MEDS ORDERED: BENAZEPRIL HCL 20 MG TABLET PO SCH (17:00)
[2020-03-16 17:26] VITALS: BP 135/86
[2020-03-16] MEDS: ATORVASTATIN 40 MG TABLET PO SCH (17:26)
--- NOTE | 2020-03-16 19:00 | NUR ---
patient for discharged waiting for black pickler.. all home meds returned. patient in stable condition. dc instructions given, to follow up with pcp and cont meds. verbalized understanding. endorsed patient to MIKE Pinto accordingly
--- NOTE | 2020-03-16 19:30 | NUR ---
MS RN NOTES RECEIVED PATIENT IN BED, AWAKE, CONSCIOUS, COOPERATIVE, BREATHING AT ROOM AIR, NO SIGNS OF RESPIRATORY DISTRESS, LAC #20G, SIDE RAILS UP.
--- NOTE | 2020-03-16 19:45 | NUR ---
MS RN NOTES DISCHARGED PATIENT THROUGH LOBBY VIA PRIVATE CAR, PATIENT WAS AMBULATORY, ABLE TO WALK ALL THE WAY WITHOUT ANY PROBLEMS, UNLABORED BREATHING, NO SIGNS OF RESPIRATORY DISTRESS, D/C NOTES GIVEN.
== END 2020-03-16 19:45 | disposition home or self-care (01) | DRG 698 ==
LOC: ER 20:35 → TELE 03-15 00:42
PROVIDERS: ADMIT Legal Medicine; ATTEND Legal Medicine
DX: N04.9 Nephrotic syndrome with unspecified morphologic changes (principal); I21.4 Non-ST elevation (NSTEMI) myocardial infarction; I50.32 Chronic diastolic (congestive) heart failure; J90 Pleural effusion, not elsewhere classified; J98.11 Atelectasis; R00.2 Palpitations; T46.5X5A Adverse effect of other antihypertensive drugs, initial encounter; I11.0 Hypertensive heart disease with heart failure; G40.909 Epilepsy, unspecified, not intractable, without status epilepticus; E78.5 Hyperlipidemia, unspecified; E03.9 Hypothyroidism, unspecified; F17.210 Nicotine dependence, cigarettes, uncomplicated; I25.10 Atherosclerotic heart disease of native coronary artery without angina pectoris; I25.2 Old myocardial infarction; I70.0 Atherosclerosis of aorta; Z88.5 Allergy status to narcotic agent; Z79.82 Long term (current) use of aspirin; Z79.899 Other long term (current) drug therapy; F41.9 Anxiety disorder, unspecified; F32.9 Major depressive disorder, single episode, unspecified; I89.0 Lymphedema, not elsewhere classified; J43.9 Emphysema, unspecified; M77.9 Enthesopathy, unspecified; E66.9 Obesity, unspecified; N19 Unspecified kidney failure; Z87.441 Personal history of nephrotic syndrome
CPT/HCPCS: 36415; 71045-TC; 71250-TC; 76770-TC; 80048-TC; 80061-TC; 81000-TC; 82040-TC; 83735-TC; 83880; 84100-TC; 84484-TC; 85025-TC; 87081-TC; G0378; J1940